=== PATIENT | female | born 1980 ===

== ENCOUNTER 2021-12-08 08:15 | Inpatient (IN) | payer OTHER ==
[~2021-12-08] VITALS: Ht 157.5 cm; Wt 63.5 kg
== END 2021-12-11 14:39 | DRG 745 ==
LOC: O/R 12-09 06:25 → SURH 12-09 08:15 → EDSTATUS 12-09 08:15 → CIR.AMB 12-09 08:15 → SURG-SUITE 12-09 09:27
PROVIDERS: ADMIT Obstetrics & Gynecology Maternal & Fetal Medicine; ATTEND Obstetrics & Gynecology Maternal & Fetal Medicine
PROC: 0UVC7ZZ Restriction of Cervix, Via Natural or Artificial Opening (ICD-10-PCS; 2021-12-09)
PROC: 0UB70ZZ Excision of Bilateral Fallopian Tubes, Open Approach (ICD-10-PCS; principal; 2021-12-09 08:30)
DX: N88.3 Incompetence of cervix uteri (principal); N70.11 Chronic salpingitis; Z20.822 Contact with and (suspected) exposure to COVID-19